=== PATIENT | female | born 1995 | race Hispanic/Latino ===

== ENCOUNTER 2018-04-14 08:52 | Emergency (ER) | payer BC ==
[~2018-04-14] VITALS: Ht 149.9 cm; Wt 59.0 kg
[2018-04-14] MEDS ORDERED: IBUPROFEN400 MG PO (09:17)
[2018-04-14] MEDS ORDERED: LIDOCAINE HCL4 ML PO (09:17)
== END 2018-04-14 09:20 | disposition home or self-care (01) ==
LOC: FSED 08:52
DX: B08.3 Erythema infectiosum [fifth disease] (principal)
CPT/HCPCS: 99283